=== PATIENT | female | born 1990 | race Asian ===

== ENCOUNTER 2020-08-09 08:17 | Emergency (ER) | payer OTHER | END 2020-08-09 09:05 | disposition home or self-care (01) | LOC: ED 08:17 | DX: J02.8 Acute pharyngitis due to other specified organisms (principal) | CPT/HCPCS: 99281 ==

== ENCOUNTER 2020-12-01 07:24 | Emergency (ER) | payer OTHER ==
[~2020-12-01] VITALS: Ht 167.6 cm; Wt 99.8 kg
[2020-12-01 07:24] VITALS: BP 155/86; TEMP 99
[2020-12-01 08:04] LABS: PLATELET COUNT 345 K/uL (152-353)
== END 2020-12-01 08:45 | disposition home or self-care (01) ==
LOC: ED 07:24
PROVIDERS: Emergency Medicine Emergency Medical Services
DX: S80.02XA Contusion of left knee, initial encounter (principal); S80.01XA Contusion of right knee, initial encounter; M25.561 Pain in right knee; W01.0XXA Fall on same level from slipping, tripping and stumbling without subsequent striking against object, initial encounter; Y92.89 Other specified places as the place of occurrence of the external cause
CPT/HCPCS: 80053; 85027; 96374; 96375; 99284; J1885; J2270